=== PATIENT | male | born 1935 | race African-American/Black ===

== ENCOUNTER 2017-04-21 14:23 | Emergency (ER) | END 2017-04-21 20:44 | disposition home or self-care (01) ==

== ENCOUNTER 2017-12-09 14:36 | Emergency (ER) | END 2017-12-09 18:06 | disposition home or self-care (01) ==

== ENCOUNTER 2018-06-29 03:53 | Emergency (ER) | payer BC ==
[~2018-06-29] VITALS: Ht 175.3 cm; Wt 69.5 kg
[~2018-06-29 03:53] MED LIST: DOCU-144 PO; GLYC1SUP92 PR; HYDR-4011 PO; HYDR-762 PO; METH500T PO; NAPR-685 PO; ONDA4TAB35 PO; POLY17PO6 PO
[2018-06-29 04:00] VITALS: Ht 175.3 cm; Wt 69.5 kg
[2018-06-29] MEDS ORDERED: ONDANSETRON 4 MG INJ IV STA ×3 (05:32→09:14)
[2018-06-29] MEDS ORDERED: morphine 2 MG INJ IV STA (05:32)
[2018-06-29] MEDS ORDERED: SOD CHLORIDE 0.9% 1,000 ML IV STA ×2 (06:19→09:14)
[2018-06-29] MEDS ORDERED: HYDROmorphONE 1 MG/ML SYG IV STA ×2 (06:19→09:14)
[2018-06-29] MEDS ORDERED: CEFTRIAXONE 1 GM/50 ML (PMX) 50 ML IVPB ONE (08:30)
[2018-06-29] MEDS ORDERED: LACT10SO5 PO (10:07)
[2018-06-29] MEDS ORDERED: TAMS0.4C2 PO (10:07)
[2018-06-29] MEDS ORDERED: DOCU-144 PO (10:08)
--- NOTE | 2018-06-29 12:58 | ERD ---
ER Documentation Chief Complaint Chief Complaint right flank pain since last night HPI This is a very pleasant 82-year-old male with a past medical history of benign prostatic hypertrophy. The patient presents to the emergency department today complaining of right flank pain. The patient indicates the right flank pain is 10 out of 10 in intensity. It has been persistent. It began to radiate to the right lower quadrant. He is also been experiencing tactile fever shaking and chills with frequency urgency and dysuria. The patient took Tylenol prior to arrival. He denies any gross hematuria. He is felt nauseous but has not experience any emesis. He has not experienced any diarrhea. ROS All systems reviewed and are negative except as per history of present illness. Medications Home Meds Reported Medications Docusate Sodium* (Colace*) 100 Mg Capsule, 100 MG PO BID, #60 CAP 06/29/18 Lactulose* (Lactulose*) 10 Gm/15 Ml Solution, 30 ML PO NEEDED, ML 06/29/18 Tamsulosin Hcl* (Tamsulosin Hcl*) 0.4 Mg Cap.er.24h, 0.4 MG PO BID, CAP 06/29/18 Discontinued Scripts Docusate Sodium* (Colace*) 100 Mg Capsule, 100 MG PO TID, #30 CAP Prov:FAM CLAROS PA-C 12/09/17 Glycerin* (Glycerin (Adult)*) 1 Each Supp.rect, 1 EACH HI DAILY PRN for CONSTIPATION, #8 SUPP.RECT Prov:FAM CLAROS PA-C 12/09/17 Methocarbamol* (Robaxin*) 500 Mg Tab, 500 MG PO Q8 PRN for PAIN, #20 TAB 1 Refill Prov:JUSTINO NASSAR DO 04/21/17 Naproxen* (Naproxen*) 375 Mg Tablet, 375 MG PO BID, #30 TAB 1 Refill Prov:JUSTINO NASSAR DO 04/21/17 Hydrocodone/Acetaminophen ([place] 5-325 Tablet) 1 Each Tablet, 1 EACH PO Q6, #24 TAB Prov:JUSTINO NASSAR DO 04/21/17 Polyethylene Glycol* (Miralax*) 17 Gm Powd.pack, 17 GM PO DAILY, #7 Prov:DORCAS SIMON MD 11/29/14 Ondansetron Hcl* (Zofran* ODT) 4 mg -ODT Tab.disper, 4 MG PO Q6 PRN for NAUSEA AND/OR VOMITING, #10 TAB Prov:DORCAS SIMON MD 11/29/14 Hydrocodone Bit-Acetaminophen* ([place]*) 10-325 Mg Tablet, 1 TAB PO Q6 PRN for PAIN, #20 TAB Prov:DORCAS SIMON MD 11/29/14 Allergies Allergies: Coded Allergies: No Known Allergy (Unverified , 06/29/18) PMhx/Soc History of Surgery: Yes (Prostate Sx, Neck Sx) Anesthesia Reaction: No Hx Neurological Disorder: No Hx Respiratory Disorders: No Hx Cardiac Disorders: No Hx Psychiatric Problems: No Hx Miscellaneous Medical Probl: Yes (CHRONIC HIP PAIN ) Hx Alcohol Use: Yes (social) Hx Substance Use: No Hx Tobacco Use: No Smoking Status: Never smoker Physical Exam Vitals Vital Signs Date Temp Pulse Resp B/P (MAP) Pulse Ox O2 O2 Flow FiO2 Time Delivery Rate 06/29/18 98.0 106 16 154/85 97 Room Air 11:05 (108) 06/29/18 102 14 158/96 97 Room Air 08:00 (116) 06/29/18 97.6 65 18 151/67 97 Room Air 05:15 (95) 06/29/18 97.6 59 18 156/69 99 04:00 (98) Physical Exam Constitutional:Well-developed. Well-nourished. Patient appeared to be in a significant amount of discomfort secondary to pain HEENT:Normocephalic. Atraumatic.Pupils were equal round reactive to light. Dry mucous membranes.No tonsillar exudates. Neck: No nuchal rigidity. No lymphadenopathy. No posterior cervical spine tenderness or step-offs. Respiratory: Not using accessory muscles of respiration.Lungs were clear to auscultation bilaterally. No rhonchi. No rales. No wheezing. Cardiovascular: Regular rate regular rhythm.No murmurs. No rubs were appreciated.S1, S2 normal. Distal pulses are palpable 2+ bilaterally. GI: Abdomen was soft. Right CVA tenderness. Non Distended. No pulsatile abdominal masses or bruits. No rebound. No guarding. Bowel sounds were present and normal. Muscle skeletal: Full range of motion of both the upper and lower extremities bilaterally.Normal muscle tone.No assymetrical calf tenderness or swelling. Skin: No petechia, no purpura. No lesions on the palms or the soles of the feet. No maculopapular rash. NEURO: Patient was alert, awake, orientated x3.No facial droop. Gait observed and normal with no ataxia.Speech had regular rate and rhythm. No focal neurological deficits. Result Diagram: 06/29/1820 06/29/1820 Results 24 hrs Laboratory Tests Test 06/29/18 05:20 White Blood Count 14.9 10^3/ul Red Blood Count 4.67 10^6/ul Hemoglobin 13.4 g/dl Hematocrit 41.4 % Mean Corpuscular Volume 88.7 fl Mean Corpuscular Hemoglobin 28.7 pg Mean Corpuscular Hemoglobin Concent 32.4 g/dl Red Cell Distribution Width 13.2 % Platelet Count 218 10^3/UL Mean Platelet Volume 11.7 fl Immature Granulocytes % 0.700 % Neutrophils % 80.1 % Lymphocytes % 13.0 % Monocytes % 5.1 % Eosinophils % 0.7 % Basophils % 0.4 % Nucleated Red Blood Cells % 0.0 /100WBC Immature Granulocytes # 0.110 10^3/ul Neutrophils # 11.9 10^3/ul Lymphocytes # 1.9 10^3/ul Monocytes # 0.8 10^3/ul Eosinophils # 0.1 10^3/ul Basophils # 0.1 10^3/ul Nucleated Red Blood Cells # 0.0 10^3/ul Urine Color YELLOW Urine Clarity CLOUDY Urine pH 6.0 Urine Specific [place] 1.016 Urine Ketones NEGATIVE mg/dL Urine Nitrite NEGATIVE mg/dL Urine Bilirubin NEGATIVE mg/dL Urine Urobilinogen NEGATIVE mg/dL Urine Leukocyte Esterase 3+ Chad/ul Urine Microscopic RBC 26 /HPF Urine Microscopic WBC > 182 /HPF Urine Bacteria FEW /HPF Urine Mucus MODERATE /HPF Urine Hemoglobin 2+ mg/dL Urine Glucose NEGATIVE mg/dL Urine Total Protein NEGATIVE mg/dl Sodium Level 141 mmol/L Potassium Level 4.3 mmol/L Chloride Level 105 mmol/L Carbon Dioxide Level 29 mmol/L Anion Gap 7 Blood Urea Nitrogen 25 mg/dl Creatinine 0.93 mg/dl Est Glomerular Filtrat Rate mL/min mL/min Glucose Level 122 mg/dl Calcium Level 9.8 mg/dl Total Bilirubin 0.7 mg/dl Direct Bilirubin 0.00 mg/dl Indirect Bilirubin 0.7 mg/dl Aspartate Amino Transf (AST/SGOT) 33 IU/L Alanine Aminotransferase (ALT/SGPT) 21 IU/L Alkaline Phosphatase 105 IU/L Troponin I < 0.012 ng/ml Total Protein 7.7 g/dl Albumin 4.1 g/dl Globulin 3.60 g/dl Albumin/Globulin Ratio 1.13 Lipase 123 U/L Current Medications Medications Dose Sig/Irena Start Time Status Last (Trade) Ordered Route PRN Stop Time Admin Dose Reason Admin Morphine 2 mg ONCE STAT 06/29/18 DC 06/29/18 Sulfate IV 05:32 05:38 (morphine) 06/29/18 05:33 Ondansetron 4 mg ONCE STAT 06/29/18 DC 06/29/18 HCl (Zofran IV 05:32 05:38 Inj) 06/29/18 05:33 Sodium 1,000 ml @ Q1H STAT 06/29/18 DC 06/29/18 Chloride 1,000 mls/hr IV 06:19 06:54 06/29/18 07:18 1 mg ONCE STAT 06/29/18 DC 06/29/18 Hydromorphone IV 06:19 06:48 HCl 06/29/18 06:21 (Dilaudid) Ondansetron 4 mg ONCE STAT 06/29/18 DC 06/29/18 HCl (Zofran IV 06:19 06:48 Inj) 06/29/18 06:21 Ceftriaxone 50 ml @ ONCE ONCE 06/29/18 DC 06/29/18 Sodium 100 mls/hr IVPB 08:30 09:55 06/29/18 08:59 Sodium 1,000 ml @ Q1H STAT 06/29/18 DC 06/29/18 Chloride 1,000 mls/hr IV 09:14 09:56 06/29/18 10:13 1 mg ONCE STAT 06/29/18 DC 06/29/18 Hydromorphone IV 09:14 09:56 HCl 06/29/18 09:16 (Dilaudid) Ondansetron 4 mg ONCE STAT 06/29/18 DC 06/29/18 HCl (Zofran IV 09:14 09:56 Inj) 06/29/18 09:16 Procedures/MDM This patient presented to the emergency department with abdominal pain and was seen and evaluated by myself. My differential diagnosis included but was not limited to abdominal aortic aneurysm, appendicitis, pancreatitis, perforated peptic ulcer, perforated viscus, Boerhaaves syndrome or visceral pain such as diverticulitis, DKA, esophagitis, hepatitis or bowel obstruction. The patient was placed on a equipment monitor phototypesetting, continuous pulse oximetry, and IV access was established by nursing staff. The patient was given intravenous Dilaudid and Zofran. This did not improve his pain and he was given a further dose of opiate analgesic medication. I did a 12-lead EKG tracing to rule out for atypical myocardial ischemia. 12 Lead EKG tracing ordered and reviewed by myself showed: Normal sinus rhythm of 90 bpm and no arrhythmia. HI interval prolonged at 242 ms with a first-degree AV block as this was present in all leads. QRS duration normal. No ST segment elevation No ST segment depression. No changes consistent with acute ischemia. CT scan of the abdomen on reviewed by myself indicate the followin. Moderate right hydronephrosis and perinephric stranding with a 1.5 cm irregular stone in the right distal renal pelvis and proximal ureter. Multiple bladder stones. Small nonobstructing left renal stone. 2. Numerous tiny gallstones. The patient has a significant amount of pyuria. I did feel symptoms were result of pyelonephritis in addition to nephrolithiasis and the patient received IV ceftriaxone. I did feel the patient was stable for transfer and I spoke with the admitting physician at [facility] who did kindly accept the patient. The patient will be transferred in serious condition. He was hemodynamically stable. Departure Diagnosis: Primary Impression: Nephrolithiasis Additional Impression: Pyelonephritis Condition: Serious CHEY CROUCH MD Jun 29, 2018 12:58
[2018-06-29 13:10] VITALS: BP 169/90; PULSE 109; RESP 20
== END 2018-06-29 13:20 | disposition short-term general hospital (02) ==
LOC: E/R 03:53
DX: N20.0 Calculus of kidney (principal); N12 Tubulo-interstitial nephritis, not specified as acute or chronic
CPT/HCPCS: 36415; 74176; 80053; 81001; 83690; 84484; 85025; 87086; 93005; 96374; 96375; 96376; 99285; J0696; J1170; J2270; J2405; J7030